=== PATIENT | male | born 1990 | race African-American/Black ===

== ENCOUNTER 2017-07-15 00:48 | Emergency (ER) | payer OTHER ==
[~2017-07-15] VITALS: Ht 182.9 cm; Wt 97.5 kg
--- NOTE | ~2017-07-15 | EKG ---
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 07/15/17 0809 0053 0053 Nick Hernandez MD, FACC /EPI
[2017-07-15] MEDS ORDERED: XANAX 0.5 MG0.5 MG PO (00:54)
[2017-07-15] MEDS ORDERED: BYSTOLIC 5 MG5 M1 PO (00:54)
[2017-07-15 02:19] LABS: ABSOLUTE NEUTROPHILS 4.7 thou/uL (1.4-8.2); BASOPHILS 0.4 % (0.0-2.0); EOSINOPHILS 1.1 % (0.0-3.0); HEMATOCRIT 41.7 % (42.0-52.0); HEMOGLOBIN 13.8 gm/dL (14.0-18.0); LYMPHOCYTES 33.1 % (24.0-44.0); MCHC 33.1 g/dL (28.0-37.0); MCV 81.8 fL (80.0-100.0); MONOCYTES 8.3 % (1.0-8.0); PLATELET COUNT 320 thou/uL (150-400); POLYS 57.1 % (36.0-66.0); RDW 13.6 % (10.5-14.5); WBC 8.2 thou/uL (4.0-11.0)
[2017-07-15 02:22] LABS: ANION GAP 10 mmol/L (7-16); BUN 11 mg/dL (7-18); CALCIUM 9.5 mg/dL (8.5-10.1); CHLORIDE 103 mmol/L (98-107); CO2 26 mmol/L (21-32); CREATININE 1.1 mg/dL (0.7-1.3); GLUCOSE 134 mg/dL (74-106); POTASSIUM 3.3 mmol/L (3.5-5.1); SODIUM 139 mmol/L (136-145)
[2017-07-15 02:30] LABS: TROPONIN-I < 0.04 ng/mL (<0.06)
[2018-02-07] MEDS ORDERED: PRILOSEC 20 MG20 MG PO (17:36)
== END 2017-07-15 04:03 | disposition home or self-care (01) ==
LOC: ER 00:48
PROVIDERS: Emergency Medicine
DX: E87.6 Hypokalemia (principal); R07.9 Chest pain, unspecified; R50.9 Fever, unspecified; I10 Essential (primary) hypertension; F41.9 Anxiety disorder, unspecified

== ENCOUNTER 2017-12-22 16:08 | Emergency (ER) | payer OTHER ==
[~2017-12-22] VITALS: Ht 182.9 cm; Wt 83.5 kg
--- NOTE | ~2017-12-22 | EKG ---
[address] [place] [address] ELECTROCARDIOGRAM REPORT Name: KAREN CASTELLANOS II [id number] Admission: 12/22/17 Attend Phys: Discharge: 12/22/17 Date of : [birth year] Report #: [id number] THIS REPORT FOR: //name// [facility] ED Test Date: 2017-12-22 Test Time: 17:12:42 Pat Name: KAREN CASTELLANOS Department: Room: Gender: M Nutrition Partner: DELROY : 1990 Requested By: Elieser Wen Order Number: [id number] MD: Hill Mejia Measurements Intervals [place] Rate: 56 P: 56 CA: 170 QRS: 57 QRSD: 89 T: 56 QT: 429 QTc: 415 Interpretive Statements Sinus rhythm LVH by voltage ST elevation consistent with early repolarization Compared to ECG 07/15/2017 00:53:12 Left ventricular hypertrophy now present ST (T wave) deviation now present T-wave abnormality no longer present Electronically Signed On 12-22-2017 19:36:03 CDT by Hill Mejia [email or web address] <ELECTRONICALLY SIGNED> By: Hill Mejia MD 12/22/17 193 11 11 Hill Mejia MD /EPI
[~2017-12-22 16:08] MED LIST: BYSTOLIC 5 MG5 M1 PO; XANAX 0.5 MG0.5 MG PO
[2017-12-22] MEDS ORDERED: OMEPRAZOLE 20 M20 M1 PO (17:33)
[2017-12-22 17:58] VITALS: BP 106/65
== END 2017-12-22 17:58 | disposition home or self-care (01) ==
LOC: ER 16:08
DX: R07.9 Chest pain, unspecified (principal); R13.10 Dysphagia, unspecified; I10 Essential (primary) hypertension; F41.9 Anxiety disorder, unspecified

== ENCOUNTER 2018-05-12 08:22 | Emergency (ER) | payer OTHER ==
[~2018-05-12] VITALS: Ht 182.9 cm; Wt 81.7 kg
--- NOTE | ~2018-05-12 | EKG ---
[address] [address] [place] [address] ELECTROCARDIOGRAM REPORT Name: KAREN CASTELLANOS II Room #: [facility] Deanne#: [id number] Admission: 05/12/18 Attend Phys: Discharge: 05/12/18 Date of : [birth year] Report #: [id number] THIS REPORT FOR: //name// [facility] ED Test Date: 2018-05-12 Test Time: 08:28:35 Pat Name: KAREN CASTELLANOS Department: Room: Gender: Director Home Health: IZA : 1990 Requested By: Kristi Shah Order Number: [id number] MD: Tony Mendez Measurements Intervals [place] Rate: 64 P: 61 CA: 176 QRS: 51 QRSD: 85 T: 56 QT: 401 QTc: 414 Interpretive Statements Sinus rhythm Early transition J-point elevation consistent with early repolarization abnormality unchanged from prior Voltage criteria for LVH Electronically Signed On 05-12-2018 13:25:04 MANAGER CLINICAL RESEARCH by Tony Mendez [email or web address] <ELECTRONICALLY SIGNED> By: Tony Mendez MD 05/12/18 1325 0828 0828 Tony Mendez MD /MONA
[~2018-05-12 08:22] MED LIST changes: +OMEPRAZOLE 20 M20 M1 PO; +PRILOSEC 20 MG20 MG PO
[2018-05-12 08:58] LABS: HEMATOCRIT 40.9 % (42.0-52.0); HEMOGLOBIN 13.7 gm/dL (14.0-18.0); MCH 27.4 pg (26.0-34.0); MCHC 33.4 g/dL (28.0-37.0); MCV 82.1 fL (80.0-100.0); RBC 4.99 mil/uL (4.50-6.00); WBC 3.7 thou/uL (4.0-11.0)
[2018-05-12 09:05] LABS: ANION GAP 9 mmol/L (7-16); BUN 10 mg/dL (7-18); CALCIUM 9.2 mg/dL (8.5-10.1); CHLORIDE 106 mmol/L (98-107); CO2 29 mmol/L (21-32); CREATININE 0.9 mg/dL (0.7-1.3); GLUCOSE 97 mg/dL (74-106); SODIUM 144 mmol/L (136-145)
[2018-05-12 09:14] LABS: TROPONIN-I <0.06 ng/mL (<0.06)
== END 2018-05-12 09:57 | disposition home or self-care (01) ==
LOC: ER 08:22
PROVIDERS: Student in an Organized Health Care Education/Training Program
DX: R07.89 Other chest pain (principal); I10 Essential (primary) hypertension; F41.9 Anxiety disorder, unspecified

== ENCOUNTER 2018-06-27 08:08 | Emergency (ER) | payer OTHER ==
[~2018-06-27] VITALS: Ht 182.9 cm; Wt 81.7 kg
[2018-06-27] MEDS ORDERED: ATENOLOL 25 MG25 M1 PO (08:26)
[2018-06-27 08:33] LABS: HEMATOCRIT 45.8 % (42.0-52.0); HEMOGLOBIN 15.4 gm/dL (14.0-18.0); MCH 27.4 pg (26.0-34.0); MCHC 33.7 g/dL (28.0-37.0); MCV 81.1 fL (80.0-100.0); PLATELET COUNT 163 thou/uL (150-400); RBC 5.64 mil/uL (4.50-6.00); RDW 14.1 % (10.5-14.5); WBC 2.4 thou/uL (4.0-11.0)
[2018-06-27 08:40] LABS: CALCIUM 9.2 mg/dL (8.5-10.1); CREATININE 1.4 mg/dL (0.7-1.3); POTASSIUM 3.7 mmol/L (3.5-5.1)
[2018-06-27 08:46] LABS: ALBUMIN 4.2 g/dL (3.4-5.0); TOTAL BILIRUBIN 0.4 mg/dL (<0.1-1.0); TOTAL PROTEIN 8.6 g/dL (6.4-8.2)
[2018-06-27] MEDS ORDERED: ZPAK PO (09:04)
[2018-06-27 09:08] LABS: ABSOLUTE NEUTROPHILS 1.8 thou/uL (1.4-8.2)
[2018-06-27 09:28] LABS: URINE BILIRUBIN NEGATIVE (Negative); URINE BLOOD NEGATIVE (Negative); URINE CLARITY CLEAR; URINE COLOR YELLOW; URINE GLUCOSE-RANDOM* NEGATIVE (Negative); URINE KETONES 2+ (Negative); URINE LEUKOCYTES-REFLEX NEGATIVE (Negative); URINE NITRITE-REFLEX NEGATIVE (Negative); URINE PROTEIN (DIPSTICK) TRACE (Negative); URINE SPECIFIC GRAVITY >= 1.030 (1.005-1.035); URINE UROBILINOGEN 0.2 E.U./dl (0.2-1.0)
[2018-06-27 09:53] VITALS: BP 114/64
== END 2018-06-27 10:00 | disposition home or self-care (01) ==
LOC: ER 08:08
PROVIDERS: Emergency Medicine
DX: J18.9 Pneumonia, unspecified organism (principal); I10 Essential (primary) hypertension; F41.9 Anxiety disorder, unspecified

== ENCOUNTER 2018-07-10 15:08 | Emergency (ER) | payer OTHER ==
[~2018-07-10] VITALS: Ht 182.9 cm; Wt 78.0 kg
--- NOTE | ~2018-07-10 | EKG ---
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
[~2018-07-10 15:08] MED LIST changes: +ATENOLOL 25 MG25 M1 PO; +ZPAK PO
[2018-07-10 15:52] LABS: HEMATOCRIT 38.5 % (42.0-52.0); HEMOGLOBIN 12.8 gm/dL (14.0-18.0); MCHC 33.3 g/dL (28.0-37.0); MCV 80.9 fL (80.0-100.0); RBC 4.75 mil/uL (4.50-6.00); RDW 13.9 % (10.5-14.5); WBC 3.5 thou/uL (4.0-11.0)
[2018-07-10 15:56] LABS: CALCIUM 8.8 mg/dL (8.5-10.1); CREATININE 0.8 mg/dL (0.7-1.3); MAGNESIUM 1.7 mg/dL (1.8-2.4); POTASSIUM 3.6 mmol/L (3.5-5.1)
[2018-07-10] MEDS ORDERED: BUTALB-APAP-CA1 EACH PO (16:41)
[2018-07-10] MEDS ORDERED: MOBIC7.5 MG PO (16:41)
[2018-07-10 16:57] VITALS: BP 112/68
== END 2018-07-10 16:57 | disposition home or self-care (01) ==
LOC: ER 15:08
PROVIDERS: Physician Assistant
DX: M79.622 Pain in left upper arm (principal); R51 Headache; I10 Essential (primary) hypertension; F41.9 Anxiety disorder, unspecified